=== PATIENT | male | born 1930 | race Caucasian/White ===

== ENCOUNTER → 2016-11-24 | Outpatient (CLI) | payer OTHER ==
--- NOTE | 2016-11-25 08:35 | MR ---
MRI Upper Extremity, Left Shoulder History: Shoulder pain. Evaluate for labral tear. Decreased range of motion and strength. Technique: MRI was performed of the left shoulder using a 3 Christine MRI system. Oblique coronal, obliqu e sagittal, and axial images were obtained with standard imaging sequences. Findings: Acromioclavicular Region: Moderate degenerative change is seen at the acromioclavicular joint. Anteri or curve to the acromion. Subacromial/subdeltoid fluid collection. Rotator Cuff: Abnormal signal intensity is seen in the distal supraspinatus tendon. There is bursal s urface and undersurface fraying and attenuation of approximately 25%. There is abnormal signal intens ity in the distal infraspinatus tendon without attenuation. Teres minor is unremarkable. There is abn ormal signal intensity in the distal subscapularis tendon without attenuation. Biceps tendon: Long head biceps tendon is seen within the bicipital groove. It becomes attenuated and has abnormal signal intensity as it exits the bicipital groove and extends intraarticular. Glenohumeral Joint: Cartilage thinning is seen in the glenoid and humeral head. This is most severe p osteriorly in the glenoid with full-thickness cartilage loss. There is periarticular spurring in the glenoid and humeral head. There is a glenohumeral joint effusion with synovial proliferation. Posteri or and inferior labrum is diminutive and torn and displaced along the posterior rim of the glenoid. D egenerative signal and nondisplaced tear are seen at the anterior inferior labrum and superior labrum . Loose body is seen in the subcoracoid recess measuring 13 mm. Impression: 1. 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 Diffuse labral pathology. Glenohumeral joint effusion with synovial proliferation. Loose body. 2. Moderate tendinopathy with mild partial tear distal supraspinatus tendon. Moderate tendinopathy in fraspinatus tendon. Subacromial/subdeltoid bursitis. 3. Moderate tendinopathy and partial tear intraarticular long head biceps tendon. 4. Moderate degenerative change acromioclavicular joint. Anterior curve to the acromion.
== END ==
LOC: FIMAGING 10:53
PROVIDERS: ATTEND Orthopaedic Surgery
DX: S43.432A Superior glenoid labrum lesion of left shoulder, initial encounter (principal); M19.012 Primary osteoarthritis, left shoulder; M75.32 Calcific tendinitis of left shoulder; M75.22 Bicipital tendinitis, left shoulder; M25.412 Effusion, left shoulder; M24.012 Loose body in left shoulder

== ENCOUNTER 2016-12-11 13:16 | Observation (INO) | payer OTHER ==
[~2016-12-11 13:16] MED LIST: BUPIVACAINE/EPI 0.5% 30 ML SDV ONE
[2016-12-11] MEDS ORDERED: LR 1,000 ML IV ONE (14:06)
[2016-12-11] MEDS ORDERED: LIDOCAINE 1% 5 ML SDV ID PRN (14:06)
[2016-12-11] MEDS ORDERED: fentaNYL 100 MCG/2 ML INJ ONE ×2 (14:25→17:10)
[2016-12-11] MEDS ORDERED: PROPOFOL/EMULSION 500 MG/50 ML BOTTLE IV ONE ×2 (14:25→15:03)
[2016-12-11] MEDS ORDERED: CEFAZOLIN 1 GM/DEXTROSE/50 ML BAG IV ONE ×2 (14:37→14:40)
[2016-12-11] MEDS ORDERED: ceFAZolin 2 GM/DEXTROSE 100 ML IV ONE (15:00)
[2016-12-11] MEDS ORDERED: EPINEPHrine 30 MG/30 ML MDV ONE (15:59)
[2016-12-11] MEDS ORDERED: ONDANSETRON 4 MG/2 ML VIAL IVP PRN (16:42)
[2016-12-11] MEDS ORDERED: OXYCODONE/APAP 5/325 TAB PO PRN (16:42)
[2016-12-11] MEDS ORDERED: TEMAZEPAM 15 MG CAP PO PRN (16:42)
--- NOTE | 2016-12-11 16:42 | POSTOPPROG ---
Post Op Note Date of Operation: 12/11/16 Surgeon: Yu Oconnor Anesthesia: LMA Pre-op Diagnosis: l shoulder impingement Procedure: l shoulder scope with SAD Inf/Abcess present in the surg proc area at time of surgery?: No Depth: Deep Incisional (Fascial) EBL: 50-100
[2016-12-11] MEDS ORDERED: D5W 1/2 NS W/ 20 KCl/L 1,000 ML IV SCH (16:45)
--- NOTE | 2016-12-11 18:50 | GOP ---
[f rep st] OPERATIVE REPORT DATE OF OPERATION: 12/11/2016 SURGEON: Yu Oconnor MD ANESTHESIA: LMA plus scalene nerve block per surgeon's request. 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 PROCEDURE PERFORMED: Left shoulder arthroscopy with debridement of labrum, rotator cuff, subacromia l bursa, and biceps tendon, along with subacromial decompression and distal clavicle excision. FINDINGS: INDICATIONS: This is an 85-year-old very active male who is an avid swimmer who has developed worse vince pain into his left shoulder, and he continues to use it. MRIs revealed a significant anterior acromial curve that is impinging upon his rotator cuff, along with fraying of his labrum. He would like surgery in order to resolve the problem. DESCRIPTION OF PROCEDURE: The patient was brought to the operating room, after the left side had be en identified as the correct side by the patient, nurse, and physician. Once in the operating room, he was given a scalene block on the left side and then placed under general anesthesia using LMA. Once asleep, he was placed in the beach chair position with the right upper extremity sterilely prep ped and draped in the usual fashion using GSI solution. Once prepped and draped, incision was made off the posterolateral corner of the acromion with the camera introduced without difficulty. Inspec tion of the joint revealed an abundant amount of tearing and fraying of the anterior, posterior, and superior portion of the labrum with calcific deposits within the fraying associated with the labrum . There were some grade 3 chondral changes noted to the humerus and to the glenoid. He was also no isra to have a significant amount of fraying to the rotator cuff and the biceps tendon, therefore, us ing an in-to-out technique, an anterior portal was made superolateral to the coracoid process with 6 x 75 mm threaded cannula, and a 3.5 mm smooth shaver was used to debride the abundant amount of tea ring of the superior, anterior, and posterior portions of the labrum, the rotator cuff, and the melinda ps tendon. Once completed, all instruments were removed from the glenohumeral joint, and using the same portal sites were reintroduced in the subacromial space. The camera switched to the lateral po rtal that was made 3 cm lateral to the acromial process of the posterior cortex of the cl avicle and through the posterior portal alternatingly using arthroscopic Bovie tip and shaver was us ed to remove the soft tissue from the undersurface of the acromion. He was noted to have a large an terior acromial curve. Therefore, an acromionizer bur was brought through the posterior portal and used to remove that curve until achieving a flat ceiling. The dissection around the distal clavicle revealed a large inferior spur, and this was also removed using a combination of shaver and bur. O nce completed, attention was turned to the rotator cuff, which was noted to have a significant amoun t of fraying, but no full-thickness tear was able to be identified. Therefore, bone around the grea ter tuberosity that was most involved in the thinning of the rotator cuff, was eburnated in order to stimulate soft tissue healing in the area. 30 cc of Marcaine was then infused into the subacromial space with the 3 portal sites closed using 3-0 nylon suture in a [id number] type stitch. The wounds were then dressed with Xeroform, 4 x 4's, and Tegaderm. He was completely undraped in the op erating room, had the left upper extremity placed in a sling. He was woken up, extubated, transferr ed onto a stretcher, and sent to the recovery room in good condition. /[id number]/MODL
[2016-12-11] MEDS: KETOROLAC 15 MG/1 ML SDV IVP SCH ×2 (22:41→23:58)
[2016-12-12] MEDS: KETOROLAC 15 MG/1 ML SDV IVP SCH ×2 (05:16→12:21)
[2016-12-12 07:52] VITALS: BP 113/63; PULSE 54; RESP 18; TEMP 98.5; O2SAT 97
== END 2016-12-12 14:27 | disposition home or self-care (01) ==
LOC: FSGY 13:16 → F3N 16:42
PROVIDERS: ADMIT Orthopaedic Surgery; ATTEND Orthopaedic Surgery
PROC: 0RBK4ZZ Excision of Left Shoulder Joint, Percutaneous Endoscopic Approach (ICD-10-PCS; principal; 2016-12-11 14:30)
PROC: 0PBB4ZZ Excision of Left Clavicle, Percutaneous Endoscopic Approach (ICD-10-PCS; principal; 2016-12-11 14:30)
PROC: 0LB24ZZ Excision of Left Shoulder Tendon, Percutaneous Endoscopic Approach (ICD-10-PCS; principal; 2016-12-11 14:30)
DX: M75.42 Impingement syndrome of left shoulder (principal); M75.112 Incomplete rotator cuff tear or rupture of left shoulder, not specified as traumatic; M75.22 Bicipital tendinitis, left shoulder; I10 Essential (primary) hypertension; E78.5 Hyperlipidemia, unspecified; G47.33 Obstructive sleep apnea (adult) (pediatric)
CPT/HCPCS: 29824; 29826; J0171; J0690; J1885; J2704; J3010

== ENCOUNTER 2018-02-28 19:21 | Emergency (ER) | payer OTHER ==
[2018-02-28] MEDS ORDERED: NS 1,000 ML IV ONE (19:47)
--- NOTE | 2018-02-28 19:54 | EDPHY ---
H & P Stated Complaint: pt says pt becoming more confused and intermittent pain in LUE Time Seen by Provider: 02/28/18 19:35 HPI/ROS: CHIEF COMPLAINT: Altered mental status HISTORY OF PRESENT ILLNESS: Patient is an 87-year-old man with a history of mild dementia and bilateral shoulder surgery who is brought to the emergency department by his and friend. They went to play [employer] this evening which they plan almost nightly. Once they got to the game he was confused about how to play and asked if he had ever played before. This concerned his and friends who brought him to the ER. They state that he seemed confused in general for about 30 min and then his symptoms resolved on the way here. No focal weakness or deficits. No slurred speech. No headache. No chest pain or shortness of breath. Patient has been complaining of mild pain below his left scapula for the last day. It hurts especially with movement of his arm also with deep inspiration. No history of cardiac or pulmonary disease. His states that he did have an episode of confusion similar to this a few years ago that turned out to be urinary tract infection. No fevers. No cough. REVIEW OF SYSTEMS: Constitutional: denies: chills, fever, recent illness, recent injury EENTM: denies: blurred vision, double vision, nose congestion Respiratory: denies: cough, shortness of breath Cardiac: denies: chest pain, irregular heart rate, lightheadedness, palpitations Gastrointestinal/Abdominal: denies: abdominal pain, diarrhea, nausea, vomiting, blood streaked stools Genitourinary: denies: dysuria, frequency, hematuria, pain Musculoskeletal: denies: joint pain, muscle pain Skin: denies: lesions, rash, jaundice, bruising Neurological: See HPI denies: headache, numbness, paresthesia, tingling, dizziness, weakness Hematologic/Lymphatic: denies: blood clots, easy bleeding, easy bruising Immunologic/allergic: denies: HIV/AIDS, transplant EXAM: GENERAL: Well-appearing, well-nourished and in no acute distress. HEAD: Atraumatic, normocephalic. EYES: Pupils equal round and reactive to light, extraocular movements intact, sclera anicteric, conjunctiva are normal. ENT: TMs normal, nares patent, oropharynx clear without exudates. Moist mucous membranes. NECK: Normal range of motion, supple without lymphadenopathy or JVD. LUNGS: Breath sounds clear to auscultation bilaterally and equal. No wheezes rales or rhonchi. HEART: Regular rate and rhythm without murmurs, rubs or gallops. ABDOMEN: Soft, nontender, normoactive bowel sounds. No guarding, no rebound. No masses appreciated. BACK: Some pain below the shoulder blade with movement of left arm or with deep inspiration. No CVA tenderness, no spinal tenderness, step-offs or deformities EXTREMITIES: Normal range of motion, no pitting or edema. No clubbing or cyanosis. NEUROLOGICAL: Cranial nerves II through XII grossly intact. Normal speech, normal gait. 5/5 strength, normal movement in all extremities, normal sensation PSYCH: Normal mood, normal affect. SKIN: Warm, dry, normal turgor, no visible rashes or lesions. Source: Patient Exam Limitations: No limitations - Personal History Tetanus Vaccine Date: 2012 - Medical/Surgical History Hx Asthma: No Hx Chronic Respiratory Disease: No Hx Diabetes: No Hx Cardiac Disease: Yes Hx Renal Disease: No Hx Cirrhosis: No Hx Alcoholism: No Hx HIV/AIDS: No Hx Splenectomy or Spleen Trauma: No Other PMH: early dementia, sleep apnea, hypertension, hypothyroid, hyperlipidemia, rotator cuff surg - Family History Significant Family History: No pertinent family hx - Social History Smoking Status: Never smoked Alcohol Use: Sober Drug Use: None Constitutional: Initial Vital Signs Temperature (C) 37.2 C 02/28/18 19:25 Heart Rate 62 02/28/18 19:25 Respiratory Rate 18 02/28/18 19:25 Blood Pressure 155/82 H 02/28/18 19:25 O2 Sat (%) 96 02/28/18 19:25 O2 Delivery Mode Room Air Allergies/Adverse Reactions: acetaminophen [From [facility]] Adverse Reaction (Verified 02/28/18 19:31) hydrocodone [From [facility]] Adverse Reaction (Verified 02/28/18 19:31) Home Medications: Medication Instructions Recorded oxyCODONE/APAP 5/325 [Percocet 1 - 2 tab PO Q3HRS PRN #0 tab 12/12/16 5/325 (*)] Medical Decision Making - Diagnostics EKG Interpretation: An EKG obtained and was read and documented in trace view. Please see trace view for full reading and report. Sinus rhythm, no acute ischemic changes, first-degree block Imaging: Discussed imaging studies w/ call center support representative Radiologist ED Course/Re-evaluation: 8:30 p.m. the patient is currently asymptomatic. He is mentating normally. We are awaiting CT angio because of his elevated D-dimer and back pain. 10:00 p.m. we discussed the CT results. The patient remains asymptomatic. He is eager to go home. His is on her way to pick him up. He declines further workup or observation. We discussed indications for returning. Did offer admission for observation but he declines. He did not have any focal weakness or deficits during his event. Differential Diagnosis: Partial list of the Differential diagnosis considered include but were not limited to; infection, confusion, TIA, medication reaction and although unlikely based on the history and physical exam, I also considered acute coronary disease, PE, dissection. - Data Points Laboratory Results: Laboratory Results 02/28/18 19:52 02/28/18 19:52 Medications Given: Discontinued Medications Sodium Chloride (Ns) 1,000 mls @ 0 mls/hr IV ONCE ONE; Wide Open PRN Reason: Protocol Stop: 02/28/18 19:48 Last Admin: 02/28/18 19:59 Dose: 1,000 mls Departure - Departure Disposition: Home, Routine, Self-Care Clinical Impression: Confusion Condition: Fair Instructions: Acute Delirium (ED) Referrals: DREA QUIÑONES [Primary Care Provider] - As per Instructions
--- NOTE | 2018-02-28 19:59 | CPEKG ---
Heart Rate: 60 RR Interval: 1000 P-R Interval: 240 QRSD Interval: 86 QT Interval: 412 QTC Interval: 412 P [place]: -6 QRS [place]: -42 T Wave [place]: -4 EKG Severity - ABNORMAL ECG - EKG Impression: SINUS RHYTHM EKG Impression: FIRST DEGREE AV BLOCK EKG Impression: LEFT ANTERIOR FASCICULAR BLOCK EKG Impression: BORDERLINE T ABNORMALITIES, INFERIOR LEADS Electronically Signed By: Migue Lakhani 28-Feb-2018 20:06:50
[2018-02-28 20:00] LABS: PLATELET COUNT 172 10^3/uL (150-400)
[2018-02-28 20:07] LABS: INR 1.08 (0.83-1.16); PROTIME(PATIENT) 14.2 SEC (12.0-15.0)
[2018-02-28] MEDS ORDERED: IOPAMIDOL (ISOVUE 370) 100 ML BTL IV ONE (21:19)
[2018-02-28 22:17] VITALS: BP 163/87
== END 2018-02-28 22:15 | disposition home or self-care (01) ==
DX: R41.0 Disorientation, unspecified (principal); E86.9 Volume depletion, unspecified; I10 Essential (primary) hypertension
CPT/HCPCS: 70450; 71046; 71275; 93005; Q9967

== ENCOUNTER → 2018-09-08 | Outpatient (CLI) | payer OTHER | LOC: BHFA 14:15 | PROVIDERS: ATTEND Internal Medicine Cardiovascular Disease | DX: R01.1 Cardiac murmur, unspecified (principal) ==

== ENCOUNTER 2018-09-14 08:58 | Observation (INO) | payer OTHER ==
[2018-09-14] MEDS ORDERED: DIAZEPAM 5 MG TAB PO ONE (09:01)
[2018-09-14] MEDS ORDERED: ASPIRIN EC 325 MG TAB PO ONE ×2 (09:01→09:28)
[2018-09-14] MEDS ORDERED: NS 1,000 ML IV ONE (09:01)
[2018-09-14] MEDS ORDERED: diphenhydrAMINE 25 MG CAP PO ONE ×2 (09:01→09:28)
[2018-09-14] MEDS ORDERED: FAMOTIDINE 20 MG TAB PO ONE (09:01)
[2018-09-14] MEDS ORDERED: FAMOTIDINE 20 MG TAB ONE (09:28)
[2018-09-14 09:40] LABS: PLATELET COUNT 158 10^3/uL (150-400)
[2018-09-14 09:55] LABS: INR 1.07 (0.83-1.16); PROTIME(PATIENT) 14.1 SEC (12.0-15.0)
[2018-09-14] MEDS ORDERED: fentaNYL 100 MCG/2 ML INJ ONE (10:04)
[2018-09-14] MEDS ORDERED: LIDOCAINE 1% 300 MG/30 ML SDV ONE (10:04)
[2018-09-14] MEDS ORDERED: MIDAZOLAM 2 MG/2 ML VIAL ONE (10:05)
[2018-09-14] MEDS ORDERED: HEPARIN 10,000 UNIT/10 ML MDV (1,000 UNIT/ML) ONE (10:05)
[2018-09-14] MEDS ORDERED: VERAPAMIL 5 MG/2 ML VIAL ONE (10:05)
[2018-09-14] MEDS ORDERED: IOPAMIDOL (ISOVUE-370) 150 ML BTL IV ONE (10:05)
--- NOTE | 2018-09-14 10:10 | PDPROPOC ---
Sedation Plan of Care Sedation Plan of Care: vital signs stable, mental status noted, patient educated of risks, benefits, alternatives, patient can tolerate sedation ASA Classification: ASA 2 Planned drugs: fentanyl, midazolam Mallampati Score: Class 1 Mallampati Reference Image: Patient passed 3-3-2 rule?: Yes
--- NOTE | 2018-09-14 10:10 | PDHPUP ---
History & Physical Update H&P update statement: This history and physical update is based on an assessment of the patient which was completed after admission or registration (within 24 hours), but prior to the surgery/procedure. H&P update: H&P reviewed & patient examined, no change in patient's condition since H&P completed
[2018-09-14] MEDS ORDERED: CLOPIDOGREL BISULFATE 75 MG TAB ONE (11:03)
[2018-09-14] MEDS ORDERED: CLOPIDOGREL BISULFATE 75 MG TAB PO ONE (11:04)
[2018-09-14] MEDS ORDERED: NITROGLYCERIN 0.4 MG BTL SL PRN (11:04)
--- NOTE | 2018-09-14 11:08 | PDDXCAT ---
Diagnostic Cath Note - . Date: 09/14/18 Landfill Attendant: Cole Indication: Class I/II angina, intolerance to med therapy or failure to respond High-risk criteria on non-invasive testing: stress-induced moderate-size multiple perfusion defects - Procedure Access: right wrist Procedure: left heart catheterization, coronary angiography, left ventriculogram - Materials Left Heart Cath size: 5F Left Heart Cath materials: pigtail, other ([place]) - Findings-Left Heart Catheterization LM: Unobstructed LAD: Large vessel extending to the apex. Minimal luminal irregularities. LCX: Large vessel, obtuse marginal branch, minimal luminal irregularities. RCA: Dominant vessel: 75% stenosis of the body of the RCA with luminal irregularities. EDP: 15 mm of mercury LVEF: 72% Wall motion: None Complications: None Estimated blood loss: <50ml Closure method: TR Band Assessment: 75% stenosis of the body of the RCA associated with symptoms and abnormal nuclear stress test. Preserved LV systolic function. Plan: Ad Hoc PCI Intervention: Patient was anticoagulated with heparin. Therapeutic ACT was confirmed. Using a 5 Amharic JR4 guiding catheter the right coronary selectively intubated. Using a 0.014 pro choice floppy wire the RCA stenosis was crossed. Q CA was performed. A 4.0 x 16 mm synergy stent was placed on the wire and positioned across the lesion. Was deployed using a single inflation. The stent was post dilated with a 4 mm balloon. Repeat angiogram showed MERLY grade 3 flow. Conclusions: Successful PCI and stenting of the body of the RCA in the setting of symptoms and abnormal nuclear stress test. Continue dual antiplatelet therapy for 1 year with aggressive secondary prevention.
--- NOTE | 2018-09-14 11:44 | CPEKG ---
Test Reason : OPEN Blood Pressure : / mmHG Vent. Rate : 049 BPM Atrial Rate : 050 BPM P-R Int : 235 ms QRS Dur : 091 ms QT Int : 454 ms P-R-T Axes : -27 -35 -01 degrees QTc Int : 410 ms Slow sinus arrhythmia Prolonged NC interval - Left axis deviation Borderline T abnormalities, inferior leads Confirmed by Justina Avitia ([id number]) on 09/14/2018 11:44:28 AM Referred By: Confirmed By:Justina Avitia
--- NOTE | 2018-09-14 17:15 | CPEKG ---
Test Reason : OPEN Blood Pressure : / mmHG Vent. Rate : 044 BPM Atrial Rate : 045 BPM P-R Int : 257 ms QRS Dur : 094 ms QT Int : 493 ms P-R-T Axes : -13 -37 -03 degrees QTc Int : 422 ms Sinus bradycardia Prolonged IA interval - first degree AV block Left axis deviation Borderline T abnormalities, inferior leads Confirmed by Justina Avitia ([id number]) on 09/14/2018 5:15:12 PM Referred By: Confirmed By:Justnia Avitia
[2018-09-15 07:41] VITALS: BP 178/92
[2018-09-15] MEDS ORDERED: CLOPIDOGREL BISULFATE 75 MG TAB PO SCH (09:00)
[2018-09-15] MEDS ORDERED: ASPIRIN EC 325 MG TAB PO SCH (09:00)
--- NOTE | 2018-09-15 09:39 | ASDISCHSUM ---
Discharge Information Plan Status:Home with No Needs Medically Cleared to Leave: Discharge Date: CM D/C Disposition:Home, Routine, Self-Care ADT D/C Disposition: Projected Discharge Date: Transportation at D/C:Family Discharge Delay Reason: Follow-Up Date: Discharge Slot: Final Diagnosis: Placement Information Patient Contact Information Contact Name:VANESSA Relationship: Address:[address] Phone: City:[place] [employer] [facility] Phone: State/Zip Code:[place] [address] Email: Financial Information Financial Class:Medicare Primary Plan Desc:MEDICARE OUTPATIENT Primary Plan Number:[id number] Secondary Plan Desc:JENNI SeanAyo VINNIE SCHILLING Secondary Plan Number:[id number] Assessment Information LACE LACE Length of stay for Answers: Less than 1 day current admission Acuity / Level of Answers: No Care: Did the patient have an inpatient admission? Comorbidities - select Answers: Other Notes: Early all that apply dementia; HTN; HLD; Hyp oth yroid # of Emergency department Answers: 0 visits in the last 6 months Score: 1 Date Signed: 09/15/2018 09:38 AM Electronically Signed By:Danay Ross Intervention Information
[2018-09-15] MEDS ORDERED: TELMISARTAN 40 MG TAB PO SCH (11:15)
--- NOTE | 2018-09-15 20:22 | GDS ---
ADMISSION DIAGNOSIS: Angina. DISCHARGE DIAGNOSIS: Angina, status post percutaneous coronary intervention and stenting of the stevan nant right coronary. MEDICATIONS: Please see the attached computer report. FOLLOWUP: 1. Follow up, [facility], 1 week. 2. Follow up, [facility], 10 to 14 days. 3. Referral to cardiac rehabilitation. PROCEDURES PERFORMED THIS HOSPITALIZATION: Left heart catheterization, PCI and stenting of the domin ant right coronary. HOSPITAL COURSE: The patient is 87 years old. He was admitted to the hospital electively for a diag nostic angiogram in the setting of chest pain and abnormal stress test. He was found have critical R CA stenosis and underwent successful PCI and stenting. He tolerated the procedure well. He was star isra on dual antiplatelet therapy and was having no complications related to this drug. He was up amb ulating without difficulty. OBJECTIVE: VITAL SIGNS: Physical examination at the time of this dictation revealed a blood pressur e of 170/92, current heart rate was 56, he was saturating well on room air, he was afebrile. NECK: He had no JVP. CHEST: Clear to auscultation and percussion. CARDIAC: Exam revealed a regular rate and rhythm. SKIN: His puncture site was healing well without ecchymosis, erythema, or edema. PROBLEM LIST: Coronary artery disease, status post stenting of the right coronary. Continue dual an tiplatelet therapy uninterrupted for at least 1 year. Continue aggressive secondary prevention inclu ding control of blood pressure, LDL less than 70. He will be referred to cardiac rehabilitation with clinical followup. /[id number]/MODL
[2018-09-16] MEDS ORDERED: LEVOTHYROXINE 50 MCG TAB PO SCH (06:00)
[2018-09-16] MEDS ORDERED: ATORVASTATIN CALCIUM 10 MG TAB PO SCH (09:00)
== END 2018-09-15 13:14 | disposition home or self-care (01) ==
LOC: FCATH 08:58 → F2W 11:25
PROVIDERS: ADMIT Internal Medicine Interventional Cardiology; ATTEND Internal Medicine Interventional Cardiology
DX: I25.110 Atherosclerotic heart disease of native coronary artery with unstable angina pectoris (principal); I10 Essential (primary) hypertension; E78.5 Hyperlipidemia, unspecified; R01.1 Cardiac murmur, unspecified
CPT/HCPCS: 92928; 93005; 93458; C1725; C1769; C1874; C1887; C9600; J1644; J2250; J3010; Q9967

== ENCOUNTER → 2019-03-08 | Outpatient (CLI) | payer OTHER | LOC: FIMAGING 09:47 | PROVIDERS: ATTEND Internal Medicine Interventional Cardiology | DX: J98.4 Other disorders of lung (principal); I10 Essential (primary) hypertension ==